=== PATIENT | male | born 1960 | race Caucasian/White ===

== ENCOUNTER 2022-06-16 21:00 | Emergency (ER) | payer BC ==
[~2022-06-16] VITALS: Ht 185.4 cm; Wt 77.1 kg
[2022-06-16] MEDS ORDERED: XARELTO20 MG (22:12)
== END 2022-06-17 01:46 | disposition home or self-care (01) ==
LOC: ER 21:00
DX: I48.91 Unspecified atrial fibrillation (principal); R55 Syncope and collapse